=== PATIENT | male | born 2000 | race Caucasian/White ===

== ENCOUNTER 2021-08-14 16:29 | Emergency (ER) | payer OTHER, SELFPAY ==
[2021-08-14 16:35] VITALS: BP 128/72; PULSE 69; RESP 16; TEMP 36.4; O2SAT 99
--- NOTE | 2021-08-14 16:57 | ED.SKABFB ---
HPI - Skin/Abscess/Foreign Bdy General Chief complaint: Skin/Abscess/Foreign Body Stated complaint: rash Time Seen by Provider: 08/14/21 16:58 Source: patient Mode of arrival: ambulatory Limitations: no limitations History of Present Illness HPI narrative: Javed Rosenberg is a 20 yo male with no PMH who [facility] with rash on his abdomen torso and legs; he is unable to identify the source of the rash she says that started on his face and has spread to his torso he denies having contact with plants outside his dog sleeps with his brother and his brother does not have a rash he also has no contact with unprotected male or female partners Related Data Home Medications Medication Instructions Recorded Confirmed multivitamin 1 tablet PO DAILY 06/26/21 08/14/21 Allergies Allergy/AdvReac Type Severity Reaction Status Date / Time No Known Allergies Allergy Verified 08/14/21 16:34 Review of Systems Review of Systems: CONSTITUTIONAL: Denies fever, chills, sweats. EYES: Denies visual changes, redness, discharge. ENT: Denies rhinorrhea, congestion, sore throat, otalgia. CARDIOVASCULAR: Denies chest pain, palpitations, edema. RESPIRATORY: Denies dyspnea, wheezing, cough GASTROINTESTINAL: Denies abdominal pain, nausea, vomiting, diarrhea. GENITOURINARY: Denies dysuria, hematuria, abnormal discharge SKIN: Denies rash or itching. Mildly pruritic rash on arms upper legs and torso NEUROLOGIC: Denies numbness, or focal weakness. PSYCHIATRIC: Denies anxiety or depression. PMFSH Social History Social History Smoking status: Never smoker Alcohol intake: current Substance use: current Substance use type: marijuana Comments At time of signature, I agree with nursing past medical, surgical, social and family history. There is no relevant family history pertinent to the presenting complaint. Exam Narrative: GENERAL: This is a well-nourished, well-developed patient, in mild distress. HEAD: normocephalic, atraumatic. EYES: Sclera clear/white. Vision is grossly intact. EARS: External ears normal. Hearing grossly intact. NOSE: External nose normal without nasal discharge, nares without redness, no rhinorrhea. THROAT: Mucous membranes moist, posterior pharynx mild redness NECK: Neck supple, non-tender CARDIOVASCULAR: Regular rate and rhythm without murmurs, gallops, or rubs. RESPIRATORY: Clear to auscultation. Breath sounds equal bilaterally. No wheezes, rales, or rhonchi. GASTROINTESTINAL: Abdomen soft, non-tender, SKIN: warm, intact with flat reddish rash small papules on abdomen chest and back as well as of her legs and forearms and hands NEURO: awake, alert, and oriented to person, place and time. There were no obvious focal neurologic abnormalities. Steady gait EXTREMITIES: Normal range of motion. BACK: Nontender without deformity Course Course Emergency Course: Patient here with red papular rash for the last 4 days after he had been sick for the weekend. Described initially like a viral exanthem but talks about it being mildly purulent Started on prednisone taper pack he will continue to take Benadryl twice a day Vital Signs Vital signs: Vital Signs Temperature 97.5 F L 08/14/21 16:35 Pulse Rate 69 08/14/21 16:35 Respiratory Rate 16 08/14/21 16:35 Blood Pressure 128/72 08/14/21 16:35 Pulse Oximetry 99 08/14/21 16:35 Temperature 97.5 F L 08/14/21 16:35 Pulse Rate 69 08/14/21 16:35 Respiratory Rate 16 08/14/21 16:35 Blood Pressure 128/72 08/14/21 16:35 Pulse Oximetry 99 08/14/21 16:35 MDM - Skin/Abscess/Foreign Bdy Differential Diagnosis Differential diagnosis: Likely abscess of skin or subcutaneous tissue, viral exanthem, allergic reaction to drug, cellulitis, eczema, insect bites, impetigo, contact dermatitis and other Critical Care Time Critical Care Time Critical Care Time: No Discharge Plan Discharge
== END 2021-08-14 17:26 | disposition home or self-care (01) ==
PROVIDERS: Emergency Provider Nurse Practitioner; PCP Family Medicine
DX: L23.9 Allergic contact dermatitis, unspecified cause (principal)
CPT/HCPCS: 99213; G0463

== ENCOUNTER → 2022-10-15 08:02 | Outpatient (CLI) | payer OTHER, SELFPAY ==
--- NOTE | ~2022-10-15 | US_ITS ---
US abdomen complete DATE: 10/15/2022 08:42 INDICATION: Splenomegaly TECHNIQUE: Real-time imaging and color flow imaging of the abdomen COMPARISON: None FINDINGS: Normal caliber of the abdominal aorta. The inferior vena cava is unremarkable. No hepatic space-occupying mass lesion. Normal hepatopedal portal venous flow direction. No gallstones or gallbladder wall thickening or pericholecystic fluid collection. Negative sonographi c Barreto's sign. The common bile duct measures 3.5 mm, normal. Right kidney measures approximately 12.3 cm length, left kidney approximately 13.5 cm length. No can l mass lesion or hydronephrosis. Spleen measures up to 12.7 cm, within normal range. IMPRESSION: No significant abnormality Reviewed, dictated and finalized at [facility]. Reviewed, dictated and finalized at location [facility]. [employer] IMPRESSION: No significant abnormality
== END ==
PROVIDERS: PCP Family Medicine; Visit Provider Family Medicine
DX: R16.1 Splenomegaly, not elsewhere classified (principal)
CPT/HCPCS: 76700

== ENCOUNTER → 2023-04-06 17:30 | Outpatient (CLI) | payer OTHER, SELFPAY ==
--- NOTE | ~2023-04-06 | XR_ITS ---
XR knee LT 3V 04/07/2023 08:05 INDICATION: Left knee pain. PROCEDURE: 3 views left knee COMPARISON: Left tibia/fibula series dated 09/29/2011. FINDINGS: Fracture, dislocation or subluxation is not identified. No significant joint effusion. The soft tissues appear within normal limits. No foreign bodies are identified. IMPRESSION: 1: NO ACUTE BONE OR JOINT ABNORMALITY IDENTIFIED. Reviewed, dictated and finalized at location B.
== END ==
PROVIDERS: PCP Physician Assistant; Visit Provider Physician Assistant
DX: M25.562 Pain in left knee (principal)
CPT/HCPCS: 73562

== ENCOUNTER 2024-08-17 07:02 | Outpatient (CLI) | payer OTHER, SELFPAY ==
--- NOTE | ~2024-08-17 | XR_ITS ---
3 VIEWS THORACIC SPINE Ordering provider: Armando Allison, PALilian History: . Acute bilat low back pain w/o sciatica . Comparison: None. FINDINGS: VERTEBRAL BODIES: Normal height and alignment. No visible fracture or subluxation. DISK SPACES: Normal. SOFT TISSUES: Normal. IMPRESSION: No acute osseous abnormality of the thoracic spine. Reviewed, dictated and finalized at location [facility].
--- NOTE | ~2024-08-17 | XR_ITS ---
3 VIEWS LUMBAR SPINE Ordering provider: Armando Allison, ASHUTOSH History: . Acute bilat low back pain w/o sciatica . Comparison: None. FINDINGS: VERTEBRAL BODIES: No visible fracture or subluxation. DISK SPACES: Normal. SOFT TISSUES: Normal. IMPRESSION: No acute osseous abnormality lumbar spine. Reviewed, dictated and finalized at location A.
== END 2024-08-17 07:03 | disposition home or self-care (01) ==
PROVIDERS: PCP Physician Assistant; Visit Provider Physician Assistant
DX: M54.50 Low back pain, unspecified (principal)
CPT/HCPCS: 72072; 72100